=== PATIENT | female | born 1935 | race African-American/Black ===

== ENCOUNTER 2018-04-01 09:45 | Emergency (ER) | payer BC ==
[~2018-04-01] VITALS: Ht 160 cm; Wt 89.0 kg
[2018-04-01] MEDS ORDERED: ONDANSETRON HCL 4MG/2ML VIAL IV STA (10:14)
[2018-04-01] MEDS ORDERED: NITROGLYCERIN OINT 1GM/INCH UDPKT TD ONE (10:15)
[2018-04-01 11:05] LABS: BASOPHILS % 0.6 % (0.0-2.0); EOSINOPHILS % 5.3 % (0.0-5.0); HEMATOCRIT. 35.5 % (36.0-48.0); HEMOGLOBIN. 11.7 g/dL (12.0-16.0); MEAN CORPUSCULAR VOLUME 87.8 fL (81.0-99.0); MEAN PLATELET VOLUME 8.3 fl (7.4-10.4); MONOCYTES % 8.5 % (2.0-8.0); NEUTROPHILS % 59.6 % (40.0-76.0); PLATELET 355 x1000/uL (130-400); RED BLOOD CELL COUNT 4.05 mill/uL (4.2-5.4); RED CELL DISTRIBUTION WIDTH 15.1 % (11.6-14.6)
[2018-04-01 11:08] LABS: CHLORIDE 107 mEq/L (98-107)
[2018-04-01 11:12] LABS: PROTHROMBIN TIME 10.2 sec (9.1-11.1)
[2018-04-01 12:44] VITALS: BP 135/84
== END 2018-04-01 12:43 | disposition left against medical advice (07) ==
LOC: ER 10:51 → EDBEDREQ 11:38 → ENRESERV 11:55 → ER 12:43 → CANBEDREQ 04-02 05:54
DX: I24.9 Acute ischemic heart disease, unspecified (principal); D64.9 Anemia, unspecified
CPT/HCPCS: 36415; 71045; 80053; 83880; 84484; 85025; 85610; 93005; 96374; 99285; J2405; Z7610